=== PATIENT | female | born 1985 | race Caucasian/White ===

== ENCOUNTER 2017-11-20 00:44 | Emergency (ER) | payer OTHER ==
[2014-10-27 03:01] VITALS: BMI 26.6
[2017-11-20 06:26] VITALS: BP 92/49; PULSE 93
--- NOTE | 2017-11-20 08:22 | OBHP ---
Datetime: 11/20/2017 01:19 IP Adm Impression: , intrauterine ; No Active Labor; Intact Membranes IP Admit Plan: Observation/Evaluation; Discharge home Admit Comment, IP Provider: 32 yo F IUP at 36.6 weeks, presents c/o cramping low abdominal p ain since 11: 30 last night. Denies lof, vb, CTX and states good movements. Pt denies fever, n/ v, no urinary symptoms. PNC: [facility] [place] [facility] [place] OBH: NVD x1 2008 FT PMH: Asthma FMH: denies PSH: none SH: denies alcohol, tobacco, drugs Allergy: PEN PE: see PE tab VSS A/P: 32 yo F IUP at 36.6 weeks with low abdominal pain, no signs of active labor. - /maternal monitoring - discharge home - labor precautions given - f/u next OB appt on Thursday11/23/[address] Rama Gutierrez PGY1. Addendum: No evidence of labor at this time. heart tracing category 1. Plan discussed discharge home w ith labor precautions. Discussed plan with patient and all patient questions answered. Rama Pelvic Type - PN: Adequate Abdomen - PN: Normal Back - PN: Normal Breast - PN: Not Done Lungs - PN: Normal Heart - PN: Normal Thyroid - PN: Not Done Neurologic - PN: Normal HEENT - PN: Normal General - PN: Normal FHR - Baseline A Provider: 140 Membranes, Provider: Intact Contraction Comments Provider: quiet EGA AdmitDate IP: 37.0 Vital Signs Provider: Reviewed; Within Normal Limits IP Chief Complaint: Maternal discomfort NICHD Variability Prov Fetus A: Moderate 6-25bpm NICHD Accel Fetus A IP Provider: 15X15 FHR Category Provider Fetus A: Category I NICHD Decel Fetus A IP Provider: None; Early Dilatation, Provider: closed Effacement, Provider: long Genitourinary Exam: Not Done DTRs - PN: Not Done
== END 2017-11-20 01:55 | disposition home or self-care (01) ==
LOC: H.EROB2 00:44
DX: O26.893 Other specified pregnancy related conditions, third trimester (principal); R10.30 Lower abdominal pain, unspecified; Z3A.36 36 weeks gestation of pregnancy

== ENCOUNTER 2017-12-01 23:45 | Emergency (ER) | payer OTHER ==
[2014-10-27 03:01] VITALS: BMI 26.6
[2017-12-02 06:20] VITALS: BP 107/67; PULSE 85; TEMP 98.1
== END 2017-12-02 01:32 | disposition home or self-care (01) ==
LOC: H.EROB2 23:45
DX: O26.93 Pregnancy related conditions, unspecified, third trimester (principal); R10.2 Pelvic and perineal pain; O47.1 False labor at or after 37 completed weeks of gestation; Z3A.38 38 weeks gestation of pregnancy

== ENCOUNTER 2017-12-08 11:14 | Emergency (ER) | payer OTHER ==
[2014-10-27 03:01] VITALS: BMI 26.6
--- NOTE | 2017-12-08 14:10 | OBHP ---
Datetime: 12/08/2017 11:42 IP Adm Impression: Term, intrauterine IP Admit Plan: Observation/Evaluation; Discharge home Admit Comment, IP Provider: PILAR: 12/11/2017 PNP: [facility] LMP: 03/07/2017 Patient does not have medical records, stating she was unable to obtain from PNP 32 yo at 39.6 wks c/o minimal vaginal spotting since 9am (<1pad). Patient also reports so me suprapubic pain 4/10 that started at 9am as well. movement appreciated. Denies loss of fluid . She was seen here 12/02/2017 for complaints of contractions. At that time, patient was placed on FHR monitoring, ultrasound was performed, and patient was not found to be in active labor. OBGYNhx: fibroid PMH: asthma Familyhx: none Socialhx: no tobacco, EtOH, or drugs Allergies: penicillin- hives Meds: vitamins PE: Gen- well appearing female in no acute distress Cardio: s1s2 no murmurs Resp: clear to auscultation b/l Abd: BS+ FHR: 140s, regular with moderate variabilities TOCO: Occasional Vacm dilated, 60% effaced, Ext: calves nontender A/P: - 32 yo at 39.6 wks - Vaginal Spotting - NST- Reactive Plan: - D/C Home - Labor Instructions given - F/U with OB Clinic Patient was seen and examined with Dr. Karen Liu PGY-1. Attending Note: This patient was seen and examined with resident and I agree with the above assessment. Abdomen - PN: Normal Lungs - PN: Normal Heart - PN: Normal General - PN: Normal IP Hx Assessment: The History has been Reviewed and is Current EGA AdmitDate IP: 39.4 Vital Signs Provider: Reviewed IP Chief Complaint: Uterine contractions Genitourinary Exam: Normal Datetime: 12/02/2017 01:37 Gestation - Est Wks by US: 38.4 Dilatation, Provider: 2 Effacement, Provider: 0
[2017-12-08 16:41] VITALS: BP 110/77; PULSE 99; TEMP 97.5; O2SAT 98
== END 2017-12-08 12:39 | disposition home or self-care (01) ==
LOC: H.EROB2 11:14 → H.L&D 12:06 → H.EROB2 12:39
DX: O26.853 Spotting complicating pregnancy, third trimester (principal); O26.93 Pregnancy related conditions, unspecified, third trimester; R10.2 Pelvic and perineal pain; O47.1 False labor at or after 37 completed weeks of gestation; Z3A.39 39 weeks gestation of pregnancy

== ENCOUNTER 2017-12-09 22:46 | Inpatient (IN) | payer OTHER ==
[2017-12-10] MEDS ORDERED: Oxytocin 30 units/LR 500ML 30 U/500 ML BAG IV ONE (00:01)
[2017-12-10] MEDS ORDERED: Lactated Ringer's 1,000 ML IV ONE (00:01)
[2017-12-10] MEDS: Lactated Ringer's 1,000 ML IV SCH ×2 (00:30→01:57)
[2017-12-10] MEDS: Clindamycin 600mg/50ml D5W 600 MG/50 ML VIAL IVPB SCH ×2 (00:40→08:41)
[2017-12-10 00:46] LABS: BASO % 0.1 % (0.0-2.0); EOS # 0.1 K/uL (0.0-0.7); HEMOGLOBIN 13.3 g/dL (12.0-16.0); LYMPH % 18.5 % (20.0-40.0); MEAN CELL VOLUME 86.2 fl (81.0-99.0); MEAN CORPUSCULAR HEMOGLOBIN 30.3 pg (27.0-31.0); MEAN CORPUSCULAR HGB CONC 35.2 g/dL (33.0-37.0); MEAN PLATELET VOLUME 9.6 fl (7.2-11.7); MONO % 9.5 % (0.0-10.0); NEUT # 7.6 K/uL (1.8-7.0); NEUT % 70.9 % (50.0-75.0); NRBC % 0.1 % (0.0-0.0); RBC 4.39 Mil/uL (3.80-5.20); RED CELL DISTRIBUTION WIDTH 12.9 % (11.5-14.5); WHITE BLOOD COUNT 10.7 K/uL (4.8-10.8)
[2017-12-10 01:03] VITALS: RESP 20; O2SAT 100
[2017-12-10] MEDS ORDERED: Fentanyl/Bupivacaine HCl 250 ML EPI ONE (02:14)
--- NOTE | 2017-12-10 06:38 | OBADHP ---
Datetime: 12/10/2017 00:11 Admit Comment, IP Provider: Pt is a 32yo 39.6wks PILAR 12/12/17 based on LMP 03/07/17 confirmed with 12wk U/S done 06/01/17. Patient states she is here because her water broke and she had a gush of fluid, along with mild cramping /, and mucus discharge. Denies any vaginal bleeding or contraction s. Patient reports good movement. Patient is GBS+ with PCN allergy. Her provider in Dr Rosalino Olivas at [facility]. OBGYNhx: fibroids- dx in May, vaginal bleeding at beginning of preg 1NSVD- No complications PNL: GBS+, others unremarkable, received TDAP- 10/09, ABO:B+ GynHx: Denies abnormal pap smears, or STI infections, Denies sexual activity PMH: asthma Meds: , Albuterol-prn Allergies: PCN- Hives Familyhx: Mom- Addisons, Grandma-DM, Grandpa-Prostate Cancer Socialhx: no tobacco, EtOH, or drugs Surg hX:none PE: Gen-AAOx3 Lying Comfortably in bed in NAD Cardio: +S1S2, no murmurs, rubs, gallops Resp: +BS heard throughout, CTA, no wheezes, rales or rhonchi Abd: BS+, no tenderness to palpation, abdomen FHR: 130, moderate variability, category 1 tracing, good accelerations TOCO: Occasional Va-3cm dilated Ext: calves nontender, no edema A/P: 32 yo at 39.2 wks here with SROM r/o active labor - Monitor heart tracings - Admit to L _ D, SROM - + Nitrazine test after speculum exam - Administer Clindamycin 600mg Q8h for GBS+ (PCN allergy) Melissa Vergara M.D. PGY-1 Patient was seen and examined with Dr. Jones. Attending Note: Patient was seen and examined with resident. with IUP at 39+weeks presenting with LOF since 22:11pm. Leakage of fluid confirm with Kenyon iraheta. Plan: Admit for IOL with Pitocin. Clindamycin for GBS prophylaxis. Monitor the progress of labor. Extremities - PN: Normal Abdomen - PN: Normal Lungs - PN: Normal Heart - PN: Normal Neurologic - PN: Normal HEENT - PN: Normal General - PN: Normal FHR - Baseline A Provider: 130 Amniotic Fluid Color, Provider: Clear Membranes, Provider: Ruptured Comments, ACOG Physical Exam: Speculum Exam: Pooling of fluid+ Nitrazine - Positive. Pool Provider: Positive Nitrazine Provider: Positive IP Hx Assessment: The History has been Reviewed and is Current Vital Signs Provider: Reviewed IP Chief Complaint: Suspected ruptured membranes; Maternal discomfort NICHD Variability Prov Fetus A: Moderate 6-25bpm NICHD Accel Fetus A IP Provider: 15X15 FHR Category Provider Fetus A: Category I NICHD Decel Fetus A IP Provider: None Dilatation, Provider: 2 Effacement, Provider: 50 Station, Provider: -3 EGA AdmitDate IP: 39.6 IP Adm Impression: Term, intrauterine ; Ruptured Membranes IP Admit Plan: Admit to unit; Initiate labor induction protocol Datetime: 12/08/2017 11:42 Genitourinary Exam: Normal Datetime: 12/02/2017 01:37 Gestation - Est Wks by US: 38.4 Datetime: 11/20/2017 01:19 Pelvic Type - PN: Adequate Back - PN: Normal Breast - PN: Not Done Thyroid - PN: Not Done Contraction Comments Provider: quiet DTRs - PN: Not Done
--- NOTE | 2017-12-10 06:51 | OBPN ---
Datetime: 12/10/2017 06:45 IP Progress Impression: Normal progression of labor IP Procedures: Sterile Vag Exam IP Progress Plan: Continue present management Membranes, Provider: Ruptured Amniotic Fluid Color, Provider: Clear FHR - Baseline A Provider: 150 Gestation - Est Wks by US: 39.6 Presentation-Admit: Vertex IP Progress Note Comment: with IUP at 39.6 SROM in labor Plan: Continur labor monitoring. Vital Signs Provider: Reviewed NICHD Accel Fetus A IP Provider: 15X15 FHR Category Provider Fetus A: Category II NICHD Variability Prov Fetus A: Moderate 6-25bpm Datetime: 12/10/2017 00:11 Pool Provider: Positive Nitrazine Provider: Positive Dilatation, Provider: 2 Effacement, Provider: 50 Station, Provider: -3 NICHD Decel Fetus A IP Provider: None Datetime: 11/20/2017 01:19 Contraction Comments Provider: quiet
[2017-12-10] MEDS ORDERED: Oxycodone/Acetaminophen 5/325 mg Tab PO PRN ×2 (11:51→13:18)
[2017-12-11 06:34] LABS: BASO % 0.2 % (0.0-2.0); EOS # 0.2 K/uL (0.0-0.7); LYMPH # 2.4 K/uL (1.0-4.3); LYMPH % 24.7 % (20.0-40.0); MEAN CELL VOLUME 87.5 fl (81.0-99.0); MEAN CORPUSCULAR HEMOGLOBIN 30.4 pg (27.0-31.0); MEAN CORPUSCULAR HGB CONC 34.7 g/dL (33.0-37.0); MEAN PLATELET VOLUME 9.6 fl (7.2-11.7); MONO # 0.8 K/uL (0.0-0.8); MONO % 8.9 % (0.0-10.0); NEUT # 6.2 K/uL (1.8-7.0); NEUT % 64.2 % (50.0-75.0); NRBC % 0.1 % (0.0-0.0); RBC 3.97 Mil/uL (3.80-5.20); WHITE BLOOD COUNT 9.6 K/uL (4.8-10.8)
--- NOTE | 2017-12-11 08:46 | OBDS ---
DELIVERY PERSONNEL Delivery Doctor: Carlos Ontiveros MD Costing Analyst: Sharon Kapoor RN Anesthesiologist: Dr. Maynard Resident: Dr. Liu MATERNAL INFORMATION Delivery Anesthesia: Epidural Medications in Delivery: Pitocin 30 units at 999ml/hr Estimated Blood Loss (ml): 200 Placenta Cultured: No Maternal Complications: None Provider Comments: Uncomplicated of a viable female, in cephalic presentation. BW of 3435g with scores of 9/9 over an intact perineum w/o any lacerations. Infant was bulb suctioned, and was crying spontaneously. No nuchal cord noted. was placed on mother. Cord was doubled clamped, an d cut by father. Placenta was delivered intact, and three vessels were noted. Cervix and vagina inspe cted for lacerations, and none were noted. EBL- 200ml Mother and baby stable. Both tolerated the procedure well. (Annotations: Data stored by ADILSON on beh fci of user) LABOR SUMMARY EDC: 12/11/2017 00:00 No. Babies in Womb: 1 Attempted: No Labor Anesthesia: None LABOR INFORMATION Reason for Induction: Not Applicable Complete Dilatation: 12/10/2017 08:52 Oxytocin: Augmentation Group B Beta Strep: Positive Antibiotics # of Doses: 2 Antibiotics Time of Last Dose: 8:35 Steroids Given: None Reason Steroids Not Administered: Not Applicable MEMBRANES Membranes Rupture Method: Spontaneous Rupture of Membranes: 12/10/2017 06:40 Length of Rupture (hrs): 2.48 Amniotic Fluid Color: Light Meconium Amniotic Fluid Amount: Small Amniotic Fluid Odor: Normal STAGES OF LABOR Stage 2 hrs: 0 Stage 2 min: 17 Stage 3 hrs: 0 Stage 3 min: 4 VAGINAL DELIVERY Episiotomy: None Laceration Extension: N/A Laceration Type: None Initial Vag Sponge Count: 10 Final Vag Sponge Count: 10 Initial Vag Sharps Count: 0 Final Vag Sharps Count: 0 Sponge Count Correct: Yes Sharps Count Correct: N/A BABY A INFORMATION Infant Delivery Date/Time: 12/10/2017 09:09 Method of Delivery: Vaginal Born in Route : No : N/A Forceps: N/A Vacuum Extraction: N/A Shoulder Dystocia : No SHOULDER DYSTOCIA BABY A Infant Delivery Date/Time: 12/10/2017 09:09 PRESENTATION/POSITION BABY A Presentation: Cephalic Cephalic Presentation: Vertex Breech Presentation: N/A PLACENTA INFORMATION BABY A Placenta Delivery Time : 12/10/2017 09:13 Placenta Method of Delivery: Spontaneous Placenta Status: Delivered SCORES BABY A Heart Rate 1 min: >100 bpm Resp Effort 1 min: Good Cry Reflex Irritability 1 min: Cough or Sneeze or Pulls Away Muscle Tone 1 min: Active Motion Color 1 min: Body Perla, Extremities Blue SCORE 1 MIN: 9 Heart Rate 5 min: >100 bpm Resp Effort 5 min: Good Cry Reflex Irritability 5 min: Cough or Sneeze or Pulls Away Muscle Tone 5 min: Active Motion Color 5 min: Body Perla, Extremities Blue Resuscitation Effort 5 min: Tactile Stimulation SCORE 5 MIN: 9 INFANT INFORMATION BABY A Gestational Age at Delivery: 39.0 Gestational Status: Term Outcome : Liveborn Infant Condition : Stable Infant Sex: Female IDENTIFICATION/MEDS BABY A ID Band Number: [id number] ID Band Location: Left Leg; Left Arm WEIGHT/LENGTH BABY A Infant Birthweight (gms): 3435 Infant Weight (lb): 7 Infant Weight (oz): 9 CORD INFORMATION BABY A No. Cord Vessels: 3 Nuchal Cord : N/A Infant Cord pH Baby Arterial: n/a Cord pH Baby Venous: n/a Cord Blood Taken: N/A Suction: None ASSESSMENT BABY A Complications: Meconium Physical Findings at Delivery: Within Normal Limits Respirations: Appears Normal Skill Training Program Coordinator/ALS Called : No Care By: Emma Duncan Transferred To: Remains with Mother
--- NOTE | 2017-12-11 13:09 | OBPPN ---
Datetime: 12/11/2017 07:50 PP Pain Prov: Within normal limits PP Nausea Prov: Denies PP Flatus Prov: Yes PP BM Prov: No PP Heart Prov: Normal PP Lungs Prov: Normal PP Abdomen/Uterus Prov: Normal PP Lochia Prov: Normal PP Extremities Prov: Normal PP Progress Prov: Normal PP Impression Prov: Normal progression PP Plan Prov: Continue present management PP Progress Note Prov: S: Pt is a 32 yo 39.6wks s/p on 12/10/18 PPD1. Seen and examined at bedside this am. Patient denies any significant overnight events. Reports mild pelvic cramping wh ich is controlled with pain medicine. OOB/Ambulation well without dizziness. Breast/Bottle feeding wi thout difficulty. Tolerating regular diet. Lochia is similar to menses. Voiding freely with no blood noted, no bowel movement, passing gas per rectum. Denies coughing today states it may have been post pain med. Denies fever/chills, diarrhea, nausea/vomiting, CP/SOB , Lightheadedness, calf pain. O: BP: 99/57, HR:61, T:97.6F CBC-12/34.7, GBS+ w/ pcn allergy was treated with Clindamycin 600mg Q8hrs, blood type: B+, rubella : Immune PHYSICAL EXAM: GEN: AAOx3, Resting comfortably in bed, NAD HEENT: NCAT, White sclera, pink conjunctiva, oral mucosa moist. LUNGS: CTA B/L, no wheezing, rhonchi, or rales, B/L chest rise CVS: RRR, S1, S2, No murmurs, rubs, gallops ABD: ND, +BS, firm fundus @ umbilical level. Soft, appropriate TTP EXT: no edema, negative Nadiya's sign, calves nontender NEURO/Psych: no gross focal deficit, preserved affect and mood. A/P 32 y/o 39.6 wks post , had a on 12/10/17 @ 9:09am Pt afebrile, tolerating pain with medication, tolerating regular diet, adequate urine output. Encourage and ambulation Ibuprofen 600mg mild pain PNV 1 tab po daily Colace and Zsvygua10.2mg PO HS for constipation Simethicone for flatulence Post op contraception- Gave her OCP form F/U 4-6 weeks for post- visit. Melissa Vergara M.D. PGY-1 Patient was seen and examined with Dr. Ontiveros OB Hospitalist on-call I saw and examined this patient on rounds this morning. Agree with PGY1 paras Morris PP Procedures: None Vital Signs Provider PP: Reviewed
[2017-12-12 17:22] VITALS: BP 112/70; PULSE 77; TEMP 98.3
== END 2017-12-12 13:00 | disposition home or self-care (01) | DRG 373 ==
LOC: H.EROB2 22:46 → H.L&D 12-10 00:02 → H.OB/GYN 12-10 12:30
PROVIDERS: ADMIT Obstetrics & Gynecology; ATTEND Obstetrics & Gynecology
PROC: 10E0XZZ Delivery of Products of Conception, External Approach (ICD-10-PCS; principal; 2017-12-10)
PROC: 4A1HXCZ Monitoring of Products of Conception, Cardiac Rate, External Approach (ICD-10-PCS; 2017-12-10)
DX: O99.824 Streptococcus B carrier state complicating childbirth (principal); Z3A.39 39 weeks gestation of pregnancy; Z37.0 Single live birth; O77.0 Labor and delivery complicated by meconium in amniotic fluid; Z88.0 Allergy status to penicillin

== ENCOUNTER 2018-01-03 23:30 | Emergency (ER) | payer OTHER ==
[2018-01-04 01:02] LABS: BASO % 0.5 % (0.0-2.0); EOS # 0.3 K/uL (0.0-0.7); EOS % 4.8 % (0.0-4.0); HEMOGLOBIN 14.2 g/dL (12.0-16.0); LYMPH # 2.2 K/uL (1.0-4.3); LYMPH % 32.7 % (20.0-40.0); MEAN CELL VOLUME 86.9 fl (81.0-99.0); MEAN CORPUSCULAR HEMOGLOBIN 29.7 pg (27.0-31.0); MEAN CORPUSCULAR HGB CONC 34.2 g/dL (33.0-37.0); MEAN PLATELET VOLUME 8.9 fl (7.2-11.7); MONO # 0.7 K/uL (0.0-0.8); MONO % 10.2 % (0.0-10.0); NEUT # 3.5 K/uL (1.8-7.0); NEUT % 51.8 % (50.0-75.0); RBC 4.8 Mil/uL (3.80-5.20); RED CELL DISTRIBUTION WIDTH 12.4 % (11.5-14.5); WHITE BLOOD COUNT 6.8 K/uL (4.8-10.8)
[2018-01-04 01:10] LABS: ALB/GLOB RATIO 1.3 (1.0-2.1); ALBUMIN 3.9 g/dL (3.5-5.0); ALT/SGPT 41 U/L (9-52); AST/SGOT 24 U/L (14-36); BLOOD UREA NITROGEN 17 mg/dl (7-17); CALCIUM 9.3 mg/dL (8.4-10.2); GFR AFRICAN-AMERICAN > 60; GFR NON-AFRICAN AMERICAN > 60
[2018-01-04 01:11] LABS: SQUAMOUS EPITHIAL < 1 /hpf (0-5); URINE BACTERIA RARE (<OCC); URINE BILIRUBIN NEGATIVE (NEGATIVE); URINE BLOOD MODERATE (NEGATIVE); URINE CLARITY SLIGHTY-CLOUDY (Clear); URINE COLOR YELLOW (YELLOW); URINE GLUCOSE (UA) NEG (Normal); URINE HYALINE CAST 0-2 /hpf (0-2); URINE LEUKOCYTE ESTERASE LARGE Leu/uL (Negative); URINE PROTEIN NEGATIVE (NEGATIVE); URINE UROBILINOGEN 0.2-1.0 mg/dL (0.2-1.0)
--- NOTE | 2018-01-04 01:52 | ED PDOC ---
HPI: Back Time Seen by Provider: 01/03/18 23:35 Chief Complaint (Nursing): Back Pain Chief Complaint (Provider): Back pain History Per: Patient History/Exam Limitations: no limitations Onset/Duration Of Symptoms: Days Current Symptoms Are (Timing): Still Present Quality Of Discomfort: "Pain" Associated Symptoms: None Exacerbating Factor(s): Movement Additional History Per: Patient Additional Complaint(s): 32yo female, currently 3 weeks post s/p , comes to ER complaining of lower back pain, worse with movement and changes in position. Patient states she pain may be due to her "hunching" over when attempting to breast feed. She denies any fever, chills, lower extremity weakness or numbness, dysuria or hematuria. Patient is concerned as she had an epidural during her labor. PMD: Dr. Tovar Past Medical History Reviewed: Historical Data, Nursing Documentation, Vital Signs Vital Signs: Last Vital Signs Temp 98.6 F 01/03/18 23:38 Pulse 95 H 01/03/18 23:38 Resp 18 01/03/18 23:38 BP 118/80 01/03/18 23:38 Pulse Ox 100 01/03/18 23:38 - Medical History PMH: Asthma Denies: Diabetes, Hepatitis, HIV, HTN, Seizures, Sexually Transmitted Disease - Surgical History Surgical History: No Surg Hx - Family History Family History: States: Unknown Family Hx - Social History Current smoker - smoking cessation education provided: No Alcohol: None - Immunization History Hx Tetanus Toxoid Vaccination: (UTD, given 2 years ago) - Home Medications Home Medications: Ambulatory Orders Medication Instructions Recorded Vit Calc,Iron,Folic 1 each PO DAILY 12/10/17 [ Vitamins] Nitrofurantoin Macrocrystals 100 mg PO BID #14 cap 01/04/18 [Macrobid] - Allergies Allergies/Adverse Reactions: Allergies Allergy/AdvReac Type Severity Reaction Status Date / Time penicillin G Allergy URTICARIA Verified 01/03/18 23:38 Review of Systems ROS Statement: Except As Marked, All Systems Reviewed And Found Negative Constitutional: Negative for: Fever, Chills Genitourinary Female: Negative for: Dysuria, Frequency, Hematuria Musculoskeletal: Positive for: Back Pain Neurological: Negative for: Weakness, Numbness Physical Exam - Reviewed Nursing Documentation Reviewed: Yes Vital Signs Reviewed: Yes - Physical Exam Appears: Positive for: Non-toxic, No Acute Distress Head Exam: Positive for: ATRAUMATIC, NORMAL INSPECTION, NORMOCEPHALIC Skin: Positive for: Normal Color Eye Exam: Positive for: Normal appearance ENT: Positive for: Normal ENT Inspection Neck: Positive for: Normal, Supple Cardiovascular/Chest: Positive for: Regular Rate, Rhythm Respiratory: Positive for: Normal Breath Sounds Gastrointestinal/Abdominal: Positive for: Normal Exam, Soft. Negative for: Tenderness, Guarding, Rebound Back: Positive for: R CVA Tenderness. Negative for: Vertebral Tenderness, Muscle Spasm Extremity: Positive for: Normal ROM. Negative for: Pedal Edema Neurologic/Psych: Positive for: Alert, Oriented. Negative for: Motor/Sensory Deficits - Laboratory Results Result Diagrams: 01/04/18 00:59 01/04/18 00:59 - ECG O2 Sat by Pulse Oximetry: 100 (RA) Pulse Ox Interpretation: Normal Medical Decision Making Medical Decision Making: Impression: Lower back pain Plan: -- Labs -- Urinalysis -- Tylenol 650mg PO 0255 Patient with a UTI, and prescribed macrobid. Patient instructed to follow up with [facility] in 2-3 days. Stable for discharge home. Scribe Attestation: Documented by Lluvia Murphy, acting as a scribe for Joe Salazar MD. Provider Scribe Attestation: All medical record entries made by the Scribe were at my direction and personally dictated by me. I have reviewed the chart and agree that the record accurately reflects my personal performance of the history, physical exam, medical decision making, and the department course for this patient. I have also personally directed, reviewed, and agree with the discharge instructions and disposition. Disposition - Clinical Impression Clinical Impression: UTI (urinary tract infection) - Patient ED Disposition Is Patient to be Admitted: No Counseled Patient/Family Regarding: Studies Performed, Diagnosis, Need For Followup - Disposition Referrals: Pipo Tovar MD [Primary Care Provider] - Disposition: Routine/Home Disposition Time: 03:00 Condition: IMPROVED Additional Instructions: FOLLOW UP WITH YOUR PRIMARY DOCTOR IN 1-2 DAYS RETURN TO THE ED WITH ANY WORSENING OR CONCERNING SYMPTOMS Prescriptions: Nitrofurantoin Macrocrystals [Macrobid] 100 mg PO BID #14 cap Instructions: Urinary Tract Infection, Adult (DC) Forms: [facility] (Lithuanian)
[2018-01-04 03:09] VITALS: BP 106/70; PULSE 78; RESP 17; TEMP 98.4
[2018-01-04 06:50] VITALS: O2SAT 100
== END 2018-01-04 03:09 | disposition home or self-care (01) ==
LOC: H.ER 23:30
DX: N39.0 Urinary tract infection, site not specified (principal); Z88.0 Allergy status to penicillin